=== PATIENT | female | born 1980 | race Caucasian/White ===

== ENCOUNTER → 2018-04-23 | Outpatient (CLI) | payer BC ==
[~2018-04-23] MED LIST: CRANBERRY1 CAP PO; MOTRIN 600600 MG/TAB PO; NORCO 325 MG-51 TAB PO; PRENATAL1 TA1 PO
== END ==
LOC: MC.RAD 09:31
DX: N63.20 Unspecified lump in the left breast, unspecified quadrant (principal)

== ENCOUNTER → 2021-08-31 | Outpatient (CLI) | payer BC | LOC: MC.RAD 06-19 09:00 | DX: Z12.31 Encounter for screening mammogram for malignant neoplasm of breast (principal) ==

== ENCOUNTER 2023-01-10 05:19 | Day surgery (SDC) | payer BC ==
[~2023-01-10] VITALS: Ht 157.5 cm; Wt 58.2 kg
[2023-01-10 06:19] VITALS: BP 102/60; PULSE 55; TEMP 97.5
[2023-01-10] MEDS ORDERED: LIPITOR 10MG10 MG PO (06:38)
[2023-01-10] MEDS ORDERED: ACIPHEX20 MG PO (06:39)
[2023-01-10] MEDS ORDERED: PRENATAL TABLET PO (06:39)
[2023-01-10] MEDS ORDERED: FLONASEALLERGY NS (06:40)
[2023-01-10] MEDS ORDERED: CRANBERRY500 M3 PO (06:40)
[2023-01-10] MEDS ORDERED: ZYRTEC 10MG10 MG PO (06:44)
[2023-01-10 09:00] VITALS: BP 98/56; PULSE 59; TEMP 97.8
[2023-01-10 09:15] VITALS: BP 101/60; PULSE 58
[2023-01-10 09:19] VITALS: TEMP 98.6
[2023-01-10 09:30] VITALS: BP 104/62; PULSE 58
[2023-01-10 09:45] VITALS: BP 106/66; PULSE 59
--- NOTE | 2023-01-10 12:53 | NUR ---
[id number] PT TO RECOVERY BAY 1 FROM PACU S/P R SHOULDER SCOPE AND DECOMPRESSION A&O, PLACED ON MONITOR, VSS ON RA DRESSING TO R SHOULDER COVERED WITH FOAM TAPE - CDI, R ARM IN SLING. 4/5 STRENGTH AND PARESTHETIC SENSATION TO RIGHT HAND/FINGERS. CAP REFIL INSTANTANEOUS. DENIES COMPLAINT. HAS TOLERATED SIPS/CHIPS. RECEIVED REPORT AND ASSUMED CARE OF PT FROM [facility] BROUGHT TO BEDSIDE PROVIDED FOOD/FLUIDS, TOLERATING WELL DR SORIANO IN TO SPEAK WITH PT JUST [place] [facility] [place] QUESTIONS/CONCERNS ADDRESSED TO PT SATISFACTION PT HAS REMAINED A&O, NAD, VSS ON RA, TOLERATING PO, IS WITHOUT SIGNIFICANT COMPLAINT, WITH STEADY GAIT THRU OUT STAY IV D/C'D. D/C INSTRUCTIONS, ANY FOLLOW UP REVIEWED AND HANDED TO PT. ALL QUESTIONS AND CONCERNS ADDRESSED TO PT SATISFACTION. TAKEN TO EXIT VIA W/C WITH ALL BELONGINGS AND PAPERWORK IN HAND, ASSISTED INTO PASSENGER SEAT OF POV. SPOUSE TO DRIVE HOME.
== END 2023-01-10 10:15 | disposition home or self-care (01) ==
LOC: SDCO 05:19
DX: M89.511 Osteolysis, right shoulder (principal); M75.41 Impingement syndrome of right shoulder; M75.101 Unspecified rotator cuff tear or rupture of right shoulder, not specified as traumatic
CPT/HCPCS: A4619; J0690; J1100; J1885; J2250; J2405; J2704; J2795; J3010; J7120

== ENCOUNTER 2023-04-04 13:45 | Outpatient (RCR) | payer BC ==
[~2023-04-04 13:45] MED LIST changes: +ACIPHEX20 MG PO; +CRANBERRY500 M3 PO; +FLONASEALLERGY NS; +LIPITOR 10MG10 MG PO; +PRENATAL TABLET PO; +ZYRTEC 10MG10 MG PO
== END 2023-04-17 | disposition home or self-care (01) ==
LOC: PT.GENESIS
DX: S43.51XD Sprain of right acromioclavicular joint, subsequent encounter (principal); M89.511 Osteolysis, right shoulder; X58.XXXD Exposure to other specified factors, subsequent encounter